=== PATIENT | male | born 1970 | race Caucasian/White ===

== ENCOUNTER 2017-05-16 18:29 | Inpatient (IN) | payer OTHER, MEDICAID ==
[~2017-05-16] VITALS: Ht 162.6 cm; Wt 73.1 kg
--- NOTE | 2017-05-16 18:35 | NUR ---
PT RETURNED TO LOBBY PENDING ROOM AVAILABILITY. VSS. RESPS E/U. NO S/S OF DISTRESS NOTED. PT SPEAKING IN CLEAR FULL SENTENCES. NO NEUROLOGICAL DEFICITS NOTED.
--- NOTE | 2017-05-16 19:19 | NUR ---
RECEIVED PT FROM TRIAGE FOR C/C OF SOB, DIZZINESS, FATIGUE, GENERAL BODY ACHES, AND DOVE. PT STATES THAT HE HAS LEUKEMIA AND IS SCHEDULED FOR A BODY TRANSFUSION TOMMORROW. PT STATES THAT SHE WAS DRIVING ON THE FREEWAY AROUND 1600 AND BEGAN TO FELL DIZZY, FATIGUE AND SOB. PT STATES HE LOSS CONSCIOUSNESS FOR AN UNKNOWN AMOUNT OF TIME. WHEN HE REGAINED CONSCIOUSNESS, HE SPOKE TO HIS MD AND TOLD HIM TO GO TO THE CLOSET ED. PT IS A/O X4, SPEECH IS CLEAR AND FOLLOWS COMMANDS. LS CLEAR BILATERAL AND CHEST RISE AND FALL EQUAL AND UNLABORED. PT IS SATTING 100% ON RA. VS STABLE ON IS ON CARDAIC MONITOR. WILL CONTINUE TO MONITOR.
--- NOTE | 2017-05-16 19:50 | NUR ---
LAB AT BEDSIDE FOR BLOOD DRAW.
[2017-05-16] MEDS ORDERED: ZOLOFT25 MG PO (20:31)
[2017-05-16] MEDS ORDERED: METFORMIN HCL1000 MG PO (20:31)
[2017-05-16 20:38] LABS: PLATELET COUNT 105 x10^3mcL (130-400); RED CELL DISTRIBUTION WIDTH 24.9 % (11.5-14.5)
--- NOTE | 2017-05-16 20:43 | NUR ---
REPORT GIVEN TO MC, ALL QUESTIONS AND CONCERNS ADDRESSED.
--- NOTE | 2017-05-16 20:56 | NUR ---
REC'D PT FROM ER VIA [facility]. PT IS AAOX4. C/O DIZZINESS AND 8/10 HEADACHE. TELE #32 NSR. RESP EVEN AND UNLABORED. PT C/O MILD SOB. O2 SAT=98%. APPLIED O2 2L VIA NC. PT C/O 05/07 GENERALIZED BODY PAIN. IV NOTED TO RFA. INTACT AND PATENT. ORIENTED PT TO CALL LIGHT. BED IN LOWEST POSITION. WILL ENDORSE TO PRIMARY RN.
--- NOTE | 2017-05-16 21:00 | NUR ---
PT. IS A/O X4. LUNG SOUNDS CLEAR BILATERAL. NO COMPLAIN OF CHEST PAIN. ON 2L O2 NASAL CANNULA. BOWEL SOUNDS PRESENT X4. NO TENDERNESS REPORTED. PEDIAL PULSES PRESENT. NO EDEMA NOTED. COMPLAINED OF 7/10 PAIN ON ENTIRE BODY. AWAITING ORDERS TO BE PLACE. WILL MEDICATE ACCORDENDLY. BED IN LOWESTEST SETTING. CALL LIGHT WITHIN REACH. WILL CONITNUE TO MONITOR PT.
[2017-05-16 21:01] LABS: CALCIUM 8.6 mg/dL (8.5-10.1); CARBON DIOXIDE 26.1 mmol/L (21-32); CHLORIDE SERUM 107 mmol/L (98-107); CREATININE SERUM 0.9 mg/dL (0.7-1.3); GFR1 > 60 mL/min; GLUCOSE SERUM 166 mg/dL (74-106); POTASSIUM SERUM 3.7 mmol/L (3.5-5.1); SODIUM SERUM 142 mmol/L (136-145)
[2017-05-16 21:05] LABS: ALBUMIN 3.9 g/dL (3.4-5.0); ALKALINE PHOSPHATASE 65 U/L (46-116); ALT/SGPT 30 U/L (16-63); AST/SGOT 20 U/L (15-37); BILIRUBIN TOTAL 1.59 mg/dL (0.20-1.00); TOTAL PROTEIN, SERUM 7.4 g/dL (6.4-8.2)
[2017-05-16 21:11] VITALS: BP 125/69
[2017-05-16 21:13] VITALS: BP 125/69
[2017-05-16 22:09] LABS: BAND NEUTROPHIL 1 % (0-10); BASOPHIL 1 % (0-2); MONOCYTE 6 % (0-7); SEGMENTED NEUTROPHILS 13 % (37-75); rbc morphology (normal/abnorm) ABNORMAL (NORMAL)
[2017-05-16 22:10] LABS: PLATELET MORPHOLOGY PLATELETS DECREASED
[2017-05-16 22:14] LABS: MAGNESIUM 2.3 mg/dL (1.8-2.4); PHOSPHOROUS 4.1 mg/dL (2.5-4.9)
[2017-05-16 22:24] LABS: FREE T4 1.06 ng/dL (0.76-1.46); FREE THYROXINE INDEX 4.3 ug/dL (1.4-4.5); T3 TOTAL 1.06 ng/mL; T4(THYROXINE) 11.5 ug/dL (4.7-13.3)
--- NOTE | 2017-05-16 22:35 | NUR ---
CONSENT WAS OBTAIN FOR BLOOD TRANSFUSION. PRE VITAL SIGNS WERE B/P 140/81, PULSE 84, TEMP 98.5, RESP. 18, SPO2 100%. WILL CONTINUE TO MONITOR PT.
--- NOTE | 2017-05-16 23:16 | NUR ---
PACKED RBC TRANSFUSION STARTED AT 2301. 15 MIN VS: B/P 112/69, PULSE 84, RESP 19, TEMP 98.4, SPO2 100%. NO ADVERSE REACTIONS NOTED. PT. TOLERATING TRANSFUSION WELL. WILL CONTINUE TO MONTIOR.
--- NOTE | 2017-05-17 00:35 | NUR ---
PT. IS SLEEPING IN BED. NO SIGNS OF ANY DISTRESS NOTED. BLOOD TRANFUSION RUNNING PER MD ORDER. NO ADVERSE REACTION NOTED. PT TOLERATING WELL. BED IN LOWEST SETTING. CALL LIGHT WITHIN REACH. WILL CONTINUE TO MONTIOR.
--- NOTE | 2017-05-17 01:40 | NUR ---
PACKED RBC TANSFUSION FINISHED, 300ML WERE GIVEN. B/P 118/72, PULSE 78, TEMP 98.2, RESP. 20, SPO2 100%. NO ADVERSE REACTIONS WHERE NOTED. PT TOLERATED TRANSFUSION WELL. LAB WAS CALLED FOR CBC IN 15 MIN. WILL CONTINUE TO MONTIOR PT.
[2017-05-17 03:39] LABS: PLATELET COUNT 95 x10^3mcL (130-400); RED CELL DISTRIBUTION WIDTH 27.4 % (11.5-14.5)
--- NOTE | 2017-05-17 03:42 | NUR ---
LAB CALLED FOR CRITICAL VALUE OF WBC OF 1.23, MD SERRATO WAS MADE AWARE. NO NEW ORDERS GIVEN. WILL CONITNUE TO MONITOR.
[2017-05-17 04:07] LABS: BAND NEUTROPHIL 3 % (0-10); METAMYELOCTE 2 % (0-2); MONOCYTE 16 % (0-7); SEGMENTED NEUTROPHILS 23 % (37-75)
[2017-05-17 04:13] LABS: rbc morphology (normal/abnorm) ABNORMAL (NORMAL); tear drop cell (dacryocyte) 1+
[2017-05-17 04:14] LABS: PLATELET MORPHOLOGY PLATELETS DECREASED
--- NOTE | 2017-05-17 05:17 | NUR ---
PT. IS SLEEPING IN BED. NO SIGNS OF PAIN NOTED. NO SIGNS OF RESP. DISTRESS. BED IN LOWEST SETTING. CALL LIGHT WITHIN REACH. WILL CONTINUE TO MONITOR.
[2017-05-17 06:30] LABS: CALCIUM 8.6 mg/dL (8.5-10.1); CARBON DIOXIDE 28.3 mmol/L (21-32); CHLORIDE SERUM 105 mmol/L (98-107); CHOLESTEROL 110 mg/dL (<200); CHOLESTEROL/HDL RATIO 4.6; CREATININE SERUM 0.8 mg/dL (0.7-1.3); GFR1 > 60 mL/min; GLUCOSE SERUM 153 mg/dL (74-106); HDL CHOLESTEROL 24 mg/dL (40-60); MAGNESIUM 2.1 mg/dL (1.8-2.4); PHOSPHOROUS 4.5 mg/dL (2.5-4.9); POTASSIUM SERUM 3.9 mmol/L (3.5-5.1); SODIUM SERUM 140 mmol/L (136-145); TRIGLYCERIDES 275 mg/dL (<150)
[2017-05-17 06:33] VITALS: BP 105/55
--- NOTE | 2017-05-17 07:30 | NUR ---
PATIENT IS IN BED, IN NEUTROPENIC ISOLATION. AWAKE ALERT ABLE TO VERBALIZE NEEDS WELL. TELE 32 NSR. RESP EVEN AND UNLABORED, LUNGS CLEAR ON ROOM AIR. DENIES ANY COUGH OR SOB. VOIDING WELL, URINE SPECIMEN COLLECTED AND SENT TO THE LAB ORDERED. LBM YESTERDAY PER PATIENT. IVF INFUSING WERLL TO RT F/A. GENERALIZED WEAKNESS NOTED. WILL CONTINUE TO MONITOR.
[2017-05-17 08:05] LABS: PLATELET COUNT 90 x10^3mcL (130-400); RED CELL DISTRIBUTION WIDTH 27.4 % (11.5-14.5)
[2017-05-17 08:10] LABS: microscopic required? NO
--- NOTE | 2017-05-17 08:30 | NUR ---
DR ESPINO AND MEDICAL TEAM INTO SEE PATIENT AND DISCUSS PLAN OF CARE TO INCLUDE POSSIBLE TRANSFER TO [facility].
[2017-05-17 08:42] LABS: urine erythrocyte NEGATIVE (NEGATIVE)
[2017-05-17 09:02] LABS: AMPHETAMINE QUAL UR NONE DETECTED (NEG <=1000)
[2017-05-17 09:12] VITALS: BP 137/83
[2017-05-17 11:53] LABS: ATYPICAL LYMPH 30 %; BAND NEUTROPHIL 0 % (0-10); BASOPHIL 0 % (0-2); MONOCYTE 45 % (0-7); SEGMENTED NEUTROPHILS 10 % (37-75); rbc morphology (normal/abnorm) ABNORMAL (NORMAL)
[2017-05-17 11:54] LABS: PLATELET MORPHOLOGY PLATELETS DECREASED
[2017-05-17 12:49] VITALS: BP 124/74
--- NOTE | 2017-05-17 15:24 | NUR ---
PATIENT IS IN BED. NEW ORDER RECEIVED TO TRANSFUSE 1 UNIT OF PRBC. PATIENT SIGNED CONSENT FOR BLOOD TRANSFUSION YESTERDAY AND IS IN AGREEMENT TO RECEIVING ANOTHER UNIT TODAY. PATIENT REQUESTING AT THIS TIME FOR MORPHIN IV Q 3 HRS PER PATIENT IT WORKS FOR HIS GENERALIZED PAIN. PER PATIENT HIS PAIN DECREASES TO ABOUT A 1/10 ON THE PAIN SCALE, THEN AFTER ABOUT 3 HRS IT STARTS INCREASING. WILL BE MEDICATED ORDERED. PATIENT REMAINS IN ISOLATION. NO ACUTE DISTRESS NOTED. WILL CONTINUE TO MONITOR.
[2017-05-17 15:45] LABS: ALBUMIN 3.7 g/dL (3.4-5.0); BILIRUBIN DIRECT 0.33 mg/dL (0.0-0.2); BILIRUBIN TOTAL 1.8 mg/dL (0.20-1.00); TOTAL PROTEIN, SERUM 6.9 g/dL (6.4-8.2)
[2017-05-17 17:06] VITALS: BP 115/78
--- NOTE | 2017-05-17 17:37 | NUR ---
PATIENT IS SITTING UP IN BED, AWAKE ALERT HAS BEEN TALKING ON HIS PHONE AND WATCHING TV. REMAINS IN ISOLATION. AWAITING TO RECEIVE UNIT OF PRBC FROM BLOOD BANK. NO ACUTE DISTRESS NOTED. WILL CONTINUE TO MONITOR.
[2017-05-17 18:25] VITALS: BP 131/80
--- NOTE | 2017-05-17 18:25 | NUR ---
UNIT OF PRBC'S STARTED AFTER UNIT AND PATIENT WAS CHECKED BY MYSELF AND SCOTT CABRERA. VITALS STABLE PRIOR TO THE START OF THE UNIT. PATIENT SITTING UP IN BED WATCHING TV AND EATING DINNER TRAY. PATIENT INSTRUCTED TO NOTIFY NURSE IF HE FEELS AND ADVERSE REACTION.
--- NOTE | 2017-05-17 18:40 | NUR ---
PATIENT IS SITTING UP IN BED WITH AT BEDSIDE. BLOOD TRANSFUSION INFUSING WELL. NO ADVERSE REACTIONS NOTED. VITALS RECHECKED APPEAR STABLE. DENIES ANY ADVERSE REACTIONS AT THIS TIME. WILL ENDORSE TO NOC NURSE.
--- NOTE | 2017-05-17 18:40 | NUR ---
I HAVE REVIEWED THE DATA COLLECTION BY RUDY (NAME): BERNADETTE LOWE ENTERED ON (DATE/TIME): 05/17/17 I CONCUR WITH THE DATA AND ANY EXCEPTIONS OR COMMENTS ARE LISTED BELOW:
--- NOTE | 2017-05-17 19:36 | NUR ---
AOX4. TELE #32, NSR. LUNGS CLEAR AND UNLABORED ON NC @ 2L. RADIAL AND PEDAL PULSES PALPABLE, NO EDEMA. BOWEL SOUNDS ACTIVE. SKIN INTACT. DENIES PAIN AT THIS TIME. BLOOD TRANSFUSION IN PROGRESS. VSS. NO SIGNS OF ADVERSE REACTIONS. BED IN LOW POSITION, CALL LIGHT IN REACH. INSTRUCTED TO CALL FOR ASSISTANCE.
[2017-05-17 21:02] VITALS: BP 126/72
--- NOTE | 2017-05-17 22:25 | NUR ---
BLOOD TRANSFUSION COMPLETE. VSS. NO S/S OF ADVERSE REACTIONS.
[2017-05-17 23:31] LABS: BASOPHIL % 0.4 % (0-2)
[2017-05-17 23:38] LABS: PLATELET COUNT 97 x10^3mcL (130-400); RED CELL DISTRIBUTION WIDTH 25.1 % (11.5-14.5)
--- NOTE | 2017-05-18 01:10 | NUR ---
BREATHING EVEN AND UNLABORED. NO ACUTE DISTRESS NOTED. WILL CONTINUE TO MONITOR.
[2017-05-18 05:37] VITALS: BP 137/65
[2017-05-18 06:41] LABS: CALCIUM 8.4 mg/dL (8.5-10.1); CARBON DIOXIDE 27.7 mmol/L (21-32); CHLORIDE SERUM 103 mmol/L (98-107); CREATININE SERUM 1.1 mg/dL (0.7-1.3); GFR1 > 60 mL/min; GLUCOSE SERUM 145 mg/dL (74-106); POTASSIUM SERUM 3.8 mmol/L (3.5-5.1); SODIUM SERUM 139 mmol/L (136-145)
--- NOTE | 2017-05-18 07:00 | NUR ---
PT WAS ENDORSE TO ME THIS MORNING. A/O X4 , TELE 32 SR. HR 75. BREATHING EVEN AND UNLABORED, NO RESP DISTRESS OR SOB NOTED. DENIES ANY CHEST PAIN AT THIS TIME. LUNGS CLEAR.ON 2LNC. PT STATED HAS GEN PAIN, MEDICATED PER EMAR. IV TO LFA PATENT AND INFUSING.
[2017-05-18 07:35] LABS: PLATELET COUNT 96 x10^3mcL (130-400); RED CELL DISTRIBUTION WIDTH 24.8 % (11.5-14.5)
[2017-05-18 07:50] LABS: BAND NEUTROPHIL 4 % (0-10); BASOPHIL 0 % (0-2); METAMYELOCTE 4 % (0-2); MONOCYTE 28 % (0-7); SEGMENTED NEUTROPHILS 20 % (37-75); rbc morphology (normal/abnorm) ABNORMAL (NORMAL)
[2017-05-18 07:51] LABS: PLATELET MORPHOLOGY D; schistocyte (helmet cell) 1+
[2017-05-18 09:16] VITALS: BP 141/76
[2017-05-18] MEDS ORDERED: LEVOFLOXACIN750 M1 PO (11:59)
[2017-05-18 12:29] VITALS: BP 134/82
[2017-05-18 13:06] VITALS: BP 141/76
--- NOTE | 2017-05-18 13:40 | NUR ---
PT WAS C/O FEELING WEAK AND SHAKY. [facility] CK WAS DONE, 131. DR. LINDQUIST MADE AWARE.
--- NOTE | 2017-05-18 15:19 | NUR ---
PT STATED HE NO LONGER FEELS SHAKY AND WEAK. CHANGED SHEETS DUE TO PT SWEATING. PT IS C/O GEN BODY PAIN, WILL MEDICATED PER EMAR. CALL LIGHT IN REACH. WILL CONTINUE PLAN OF CARE.
[2017-05-18 16:54] VITALS: BP 124/72
--- NOTE | 2017-05-18 19:00 | NUR ---
PT IS LAYING IN BED WATCHING TV. BREATHING EVEN AND UNLABORED. NO RESP DISTRESS OR SOB NOTED, ON 2LNC. DENIES ANY CHEST PAIN OR DISCOMFORT AT THIS TIME. VS STABLE. WILL ENDORSE CARE TO INCOMING RN.
--- NOTE | 2017-05-18 19:23 | NUR ---
AOX4. TELE #32, NSR. LUNGS CLEAR AND UNLABORED ON NC @ 2L. RADIAL AND PEDAL PULSES PALPABLE, NO EDEMA. BOWEL SOUNDS ACTIVE. SKIN INTACT. DENIES PAIN AT THIS TIME. NEUTROPENIC PRECAUTIONS MAINTAINED. BED IN LOW POSITION, CALL LIGHT IN REACH. INSTRUCTED TO CALL FOR ASSISTANCE.
[2017-05-18 20:38] VITALS: BP 123/64
--- NOTE | 2017-05-19 00:51 | NUR ---
RESTING WITH EYES CLOSED. AWAKENS EASILY TO VERBAL STIMULI. BREATHING EVEN AND UNLABORED. NO ACUTE DISTRESS NOTED. WILL CONTINUE TO MONITOR.
[2017-05-19 05:11] VITALS: BP 118/56
--- NOTE | 2017-05-19 06:08 | NUR ---
NO ACUTE CHANGES DURING SHIFT. WILL ENDORSE TO ONCOMING RN.
[2017-05-19 06:49] LABS: CALCIUM 8.5 mg/dL (8.5-10.1); CARBON DIOXIDE 26.8 mmol/L (21-32); CHLORIDE SERUM 105 mmol/L (98-107); CREATININE SERUM 0.9 mg/dL (0.7-1.3); GFR1 > 60 mL/min; GLUCOSE SERUM 145 mg/dL (74-106); POTASSIUM SERUM 4.6 mmol/L (3.5-5.1); SODIUM SERUM 138 mmol/L (136-145)
[2017-05-19 07:18] LABS: PLATELET COUNT 90 x10^3mcL (130-400); RED CELL DISTRIBUTION WIDTH 24.2 % (11.5-14.5)
--- NOTE | 2017-05-19 07:24 | NUR ---
PT WS ENDORSE TO ME THIS MORNING. SITTING UP IN BED, AA/O X4. TELE 22 SR. BREATHING EVEN AND UNLABORED, NO RESP DISTRESS OR SOB NOTED. DENIES ANY BODY PAIN OR DISCOMFORT AT THIS TIME. IV INTACT AND PATENT. CALL LIGHT IN REACH. WILL CONTINUE PLAN OF CARE.
[2017-05-19 07:54] LABS: ATYPICAL LYMPH 8 %; SEGMENTED NEUTROPHILS 28 % (37-75)
[2017-05-19 07:55] LABS: MONOCYTE 18 % (0-7)
[2017-05-19 07:56] LABS: rbc morphology (normal/abnorm) ABNORMAL (NORMAL)
[2017-05-19 08:08] LABS: PLATELET MORPHOLOGY PLATELETS DECREASED
[2017-05-19 09:09] VITALS: BP 128/67
--- NOTE | 2017-05-19 09:16 | NUR ---
PT C/O FEELING NAUSEOUS MEDICATED WITH ZOFRAN.
--- NOTE | 2017-05-19 11:54 | NUR ---
PT C/O BODY PAIN 05/07. MEDICATED PER EMAR.
[2017-05-19] MEDS ORDERED: ENDOCET 5-3251 EACH PO ×3 (13:08→13:40)
--- NOTE | 2017-05-19 13:19 | NUR ---
PT IS SITTING UP IN BED. TOLERATED MOST OF HIS LUNCH. STATED HIS N/V IS MUCH BETTER. BREATHING EVEN AND UNLABORED, NO RESP DISTRESS OR SOB NOTE, ON 2L NC. DENIES ANY DISCOMFORT AT THIS TIME. CALL LIGHT IN REACH. WILL CONTINUE PLAN OF CARE.
[2017-05-19] MEDS ORDERED: LEVOFLOXACIN750 M1 PO (13:35)
[2017-05-19 13:54] VITALS: BP 121/74
[2017-05-19 14:20] VITALS: BP 121/74
--- NOTE | 2017-05-19 15:24 | NUR ---
EXPLAINED DISCHARGE INSTRUCTIONS, FOLLOW UP APPOINTMENT, DM TEACHING AND MEDICATIONS TO PT. PT AGREED AND SIGNED ALL DOCUMENTS. REMOVED TELE 32 AND IV TO THE LAC. PT TOLERATED REMOVAL WELL. NO REDNESS OR SWELLING NOTED. PT WILL CALL NURSES STATION WHEN IS IS DRESSED AND HIS RIDE HAS ARRIVED.
--- NOTE | 2017-05-19 15:45 | NUR ---
I HAVE REVIEWED THE DATA COLLECTION BY RUDY (NAME):BERNADETTE LOWE ENTERED ON (DATE/TIME):05/19/17 AT 0700AM I CONCUR WITH THE DATA AND ANY EXCEPTIONS OR COMMENTS ARE LISTED BELOW:
--- NOTE | 2017-05-19 16:00 | NUR ---
PT IS BEING DISCHARGE. RADHA BARKER WALKED PT DOWN TO DISCHARGE LOBBY, WHERE FAMILY MEMBER IS WAITING IN LOBBY. PT BREATHING EVEN AND UNLABORED. NO RESP DISTRESS OR SOB NOTED. VS STABLE. DENIES ANY BODY PAIN OR DISCOMFORT AT THIS TIME. PT IS VERY HAPPY HE IS GOING HOME.
== END 2017-05-19 16:00 | disposition home or self-care (01) | DRG 811 ==
LOC: ED 18:29 → DU 20:21
PROVIDERS: Emergency Medicine; Family Medicine; ADMIT Family Medicine
PROC: 30233N1 Transfusion of Nonautologous Red Blood Cells into Peripheral Vein, Percutaneous Approach (ICD-10-PCS; principal; 2017-05-16)
DX: D46.Z Other myelodysplastic syndromes (principal); D61.1 Drug-induced aplastic anemia; J98.11 Atelectasis; D68.69 Other thrombophilia; E11.9 Type 2 diabetes mellitus without complications; F32.9 Major depressive disorder, single episode, unspecified; Z68.27 Body mass index [BMI] 27.0-27.9, adult; Z79.84 Long term (current) use of oral hypoglycemic drugs; T45.1X5A Adverse effect of antineoplastic and immunosuppressive drugs, initial encounter; Y92.238 Other place in hospital as the place of occurrence of the external cause
CPT/HCPCS: 82962; 83880; 84439; 90658; 94150; J1956; J2270; J2405; J7030; J7040; J7050; P9016; Q0092; Q0163

== ENCOUNTER 2017-07-04 17:24 | Inpatient (IN) | payer OTHER, MEDICAID ==
[~2017-07-04] VITALS: Ht 162.6 cm; Wt 74.0 kg
[~2017-07-04 17:24] MED LIST: ENDOCET 5-3251 EACH PO; LEVOFLOXACIN750 M1 PO; METFORMIN HCL1000 MG PO; ZOLOFT25 MG PO
--- NOTE | 2017-07-04 17:40 | NUR ---
AWAKE ALERT ORIENTED, STATED STARTED TO FEEL DIZZY SINCE 2 DAYS,WEAKNESS FOR A LONG TIME SINCE STARTED CHEMOTHERAPY 2 YEARS AGO,
--- NOTE | 2017-07-04 17:56 | NUR ---
IV ESTABLISHED, EKG DONE
[2017-07-04 18:32] LABS: CALCIUM 8.5 mg/dL (8.5-10.1); CARBON DIOXIDE 27.9 mmol/L (21-32); CHLORIDE SERUM 105 mmol/L (98-107); GFR1 > 60 mL/min; GLUCOSE SERUM 216 mg/dL (74-106); POTASSIUM SERUM 3.6 mmol/L (3.5-5.1); SODIUM SERUM 140 mmol/L (136-145)
[2017-07-04 18:33] LABS: PLATELET COUNT 135 x10^3mcL (130-400)
[2017-07-04 18:34] LABS: RED CELL DISTRIBUTION WIDTH 24.8 % (11.5-14.5)
[2017-07-04 18:38] LABS: ALKALINE PHOSPHATASE 89 U/L (46-116); ALT/SGPT 32 U/L (16-63); BILIRUBIN TOTAL 1.42 mg/dL (0.20-1.00); TOTAL PROTEIN, SERUM 7.5 g/dL (6.4-8.2)
[2017-07-04 19:04] LABS: AST/SGOT 13 U/L (15-37)
[2017-07-04 19:17] LABS: BAND NEUTROPHIL 0 % (0-10); BASOPHIL 0 % (0-2); MONOCYTE 13 % (0-7); SEGMENTED NEUTROPHILS 54 % (37-75); rbc morphology (normal/abnorm) ABNORMAL (NORMAL)
--- NOTE | 2017-07-04 19:22 | NUR ---
PT LYING DOWN RESTING, PT AAOX4, SPEAKING IN CLEAR SENTENCES. PT IN NO ACUTE DISTRESS.
--- NOTE | 2017-07-04 19:50 | NUR ---
RESIDENT AT BEDSIDE
--- NOTE | 2017-07-04 20:19 | NUR ---
REPORT GIVEN TO CARIN WHO IS ORIENTING WITH SONJA CABRERA. SONJA AND CARIN WILL ASSUME CARE POST TRANSFER
[2017-07-04 20:27] LABS: AMYLASE 56 U/L (25-115); LIPASE 264 IU/L (73-393); MAGNESIUM 2.4 mg/dL (1.8-2.4); PHOSPHOROUS 3.7 mg/dL (2.5-4.9)
[2017-07-04 20:28] LABS: CHOLESTEROL 110 mg/dL (<200); CHOLESTEROL/HDL RATIO 5.8; HDL CHOLESTEROL 19 mg/dL (40-60); TRIGLYCERIDES 544 mg/dL (<150)
[2017-07-04 20:35] VITALS: BP 139/80
[2017-07-04 20:35] LABS: FREE T4 1.08 ng/dL (0.76-1.46); FREE THYROXINE INDEX 3.7 ug/dL (1.4-4.5); T4(THYROXINE) 10.9 ug/dL (4.7-13.3)
--- NOTE | 2017-07-04 20:35 | NUR ---
PT RECIEVED FROM ED ON [facility] ACCOMPANIED BY NURSE. PT IS ON TELE #22 SHOWING SINUS TACHYCARDIA HR IS 110. ALERT AND ORIENTED X4. DENIES CHEST PAIN AT THIS TIME. C/O DOVE PAIN AT 8/10 WILL MEDICATE PER EMAR. PULSES PALPABLE IN ALL EXTREMITIES. NO EDEMA NOTED. LUNG SOUNDS CTA. NO SOB OBSERVED. BOWEL SOUNDS ACTIVE X4 QUADRANTS. GENERALIZED WEAKNESS. IV SITE IS PATENT AND INTACT. BED IS IN LOWEST POSITION, SIDE RAILS UP X2, CALL LIGHT IS WITHIN REACH. WILL CONTINUE TO MONITOR.
[2017-07-04 20:36] LABS: T3 TOTAL 1.02 ng/mL
[2017-07-04 20:43] LABS: RED BLOOD CELLS 2.24 M/mm3 (4.52-5.90)
--- NOTE | 2017-07-04 20:56 | NUR ---
PER DR KARINA OLMEDO TO GIVE NORCO 7.5/325 PO X 2 TABS AT THIS TIME FOR PT'S HEADACHE.
[2017-07-04 21:08] LABS: IRON 63 ug/dL (65-170)
[2017-07-04 21:09] LABS: TOTAL IRON BINDING CAPACITY 201 ug/dL (250-450)
[2017-07-04 22:16] VITALS: BP 139/80
--- NOTE | 2017-07-04 23:27 | NUR ---
PT C/O PAIN AT 04/07, MEDICATED WITH TORADOL 30 MG PER EMAR. WILL CONTINUE TO MONITOR.
[2017-07-05] VITALS (10 sets, daily range): BP systolic 111–139; BP diastolic 65–82
--- NOTE | 2017-07-05 03:40 | NUR ---
PATIENT C/O PAIN 03/07, WILL MEDICATE PER EMAR.
--- NOTE | 2017-07-05 06:11 | NUR ---
PT IS RESTING IN BED. C/O PAIN AT 8/10 WILL MEDICATE PER EMAR. TELE #40 IS SHOWING SINUS TACHYCARDIA, HR IS 116. NO ACUTE CHANGES. DENIES SOB AT THIS TIME. DENIES CHEST PAIN AT THIS TIME. ALL NEEDS MET AND ATTENDED TO. IV SITE IS PATENT AND INTACT. BED RAILS UP X2, BED IS IN LOWEST POSITION, CALL LIGHT IS WITHIN REACH. WILL ENDORSE CARE TO ONCOMING SHIFT NURSE.
--- NOTE | 2017-07-05 08:00 | NUR ---
ALERT/ORIENTED X4. STATED HEADACHE AND WHOLE BODY PAIN 2/10 NOW. TELE#23 = SR; HR =96. NO RESP DISTRESS ON RA. O2 SAT 99% ON RA. FINISHED 100% OF CCHO DIET BREAKFAST. TOLERATED WELL. ABD ROUND/SOFT. IVF OF NS 30CC/HR INFUSING WELL. IV SITE TO RFA INTACT. GENERAL WEAKNESS. AMBULATORY. REVERSED ISOLATION FOR LEUKEMIA. CALL LIGHT IN REACH.
--- NOTE | 2017-07-05 09:00 | NUR ---
DR. ESPINO AND MEDICAL TEAM MADE MORNING ROUND. PLAN OF CARE DISCUSSED WITH PATIENT, INCLUDED WITH BLOOD TRANSFUSION TODAY AND D/C HOME AFTER BLOOD TRANSFUSION DONE. DAMIEN AGREED WITH PLAN OF CARE.
[2017-07-05 09:01] LABS: PLATELET COUNT 92 x10^3mcL (130-400); RED CELL DISTRIBUTION WIDTH 24.8 % (11.5-14.5)
[2017-07-05 09:33] LABS: CALCIUM 8.7 mg/dL (8.5-10.1); CARBON DIOXIDE 26.4 mmol/L (21-32); CHLORIDE SERUM 107 mmol/L (98-107); GFR1 > 60 mL/min; GLUCOSE SERUM 208 mg/dL (74-106); MAGNESIUM 2.3 mg/dL (1.8-2.4); PHOSPHOROUS 4.5 mg/dL (2.5-4.9); POTASSIUM SERUM 4.1 mmol/L (3.5-5.1); SODIUM SERUM 141 mmol/L (136-145)
[2017-07-05 09:47] LABS: ALBUMIN 3.5 g/dL (3.4-5.0); ALKALINE PHOSPHATASE 79 U/L (46-116); ALT/SGPT 25 U/L (16-63); AST/SGOT 19 U/L (15-37); BILIRUBIN TOTAL 1.23 mg/dL (0.20-1.00); CALCIUM 8.3 mg/dL (8.5-10.1); CARBON DIOXIDE 27.5 mmol/L (21-32); CHLORIDE SERUM 106 mmol/L (98-107); CREATININE SERUM 1.1 mg/dL (0.7-1.3); GFR1 > 60 mL/min; GLUCOSE SERUM 231 mg/dL (74-106); POTASSIUM SERUM 4.1 mmol/L (3.5-5.1); SODIUM SERUM 138 mmol/L (136-145); TOTAL PROTEIN, SERUM 6.7 g/dL (6.4-8.2)
[2017-07-05 10:32] LABS: BAND NEUTROPHIL 16 % (0-10); BASOPHIL 0 % (0-2); METAMYELOCTE 2 % (0-2); MONOCYTE 15 % (0-7); MYELOCYTE 1 % (0-2); SEGMENTED NEUTROPHILS 41 % (37-75)
[2017-07-05 10:33] LABS: PLATELET MORPHOLOGY PLATELETS DECREASED; rbc morphology (normal/abnorm) ABNORMAL (NORMAL); tear drop cell (dacryocyte) 1+
--- NOTE | 2017-07-05 13:50 | NUR ---
1 ST UNIT OF PRBC TRANSFUSION STARTED. BENADRYL 25MG AND TYLENOL 650MG PO GIVEN.
--- NOTE | 2017-07-05 16:30 | NUR ---
ONE UNIT OF PRBC TRANSFUSION DONE. NO ADVERSED REACTION. CONDITION STABLE.
[2017-07-05 18:17] LABS: PLATELET COUNT 90 x10^3mcL (130-400); RED CELL DISTRIBUTION WIDTH 24.9 % (11.5-14.5)
[2017-07-05 18:46] LABS: BAND NEUTROPHIL 5 % (0-10); METAMYELOCTE 2 % (0-2); MONOCYTE 13 % (0-7); MYELOCYTE 1 % (0-2); SEGMENTED NEUTROPHILS 51 % (37-75)
[2017-07-05 18:48] LABS: rbc morphology (normal/abnorm) ABNORMAL (NORMAL); tear drop cell (dacryocyte) 2+
--- NOTE | 2017-07-05 18:50 | NUR ---
RECHECKED H/H = 7.8/24; WBC =2.2; DR. PARDO NOTIFIED. CNACLED DISCHARGE ORDER. ENDORSED CARE TO [facility] NURSE.
--- NOTE | 2017-07-05 19:35 | NUR ---
PT SITTING UP IN BED, C/O CP ASSOCIATED W/ COUGHING AT THIS TIME. WILL MEDICATE W/ TORADOL. PT ALERT AND ORIENTED X4 ON RA. PT ON NEUTROPENIC PRECAUTIONS D/T LOW WBC. TELE #22, ST 115. PT DENIES CP (CARDIAC) AT THIS TIME. ABD SOFT, ROUND, NONDISTENDED, BOWEL SOUNDS + X4 QUADRANTS, NO ABD PAIN NOTED AT THIS TIME. GENERALIZED WEAKNESS, SKIN INTACT, IV SITE REMAINS PATENT, SALINE LOCKED AT THIS TIME D/T PT PREVIOUSLY PLAN FOR D/C UNTIL LOW HGB. CALL LIGHT WITHIN REACH, BED IN LOWEST POSITION, WILL CONTINUE TO MONITOR.
[2017-07-06 01:00] VITALS: BP 123/72
[2017-07-06 03:00] VITALS: BP 131/78
--- NOTE | 2017-07-06 05:20 | NUR ---
PT RESTED IN INTERVALS THROUGHOUT NIGHT, NO ACUTE CHANGES OCCURRED DURING SHIFT. PT RECEIVED 2 UNITS PACKED RBC'S; PT DENIES ANY ADVERSE REACTION, VS REMAINED STABLE. PT REMAINED A & OX4, TELE #22 SR 89, NO C/O CP (CARDIAC) AT THIS TIME. MEDICATED PT X1 W/ TORADOL IVP @ 2013 FOR CHEST MUSCLE PAIN W/ COUGH. MEDICATED PT W/ ROBITUSSIN W/ CODEINE FOR COUGH @ 0016. IV SITE REMAINS PATENT, NS @ 10ML/HR. NO REDNESS, SWELLING OR PAIN NOTED. PT REPORTS FEELING BETTER AFTER TRANSFUSION, CALL LIGHT WITHIN REACH, BED IN LOWEST POSITION, WILL CONTINUE TO MONITOR.
[2017-07-06 06:24] VITALS: BP 136/65; BP 153/77
--- NOTE | 2017-07-06 07:15 | NUR ---
PT IS ON NEUTOPENIC PRECAUTION. PT SEEN AA/O X4. PT STATED TORADOL HELP THE CHEST PAIN INDUCED BY COUGHING. PT BREATHING ON RA, EVEN, UNLABORED. IV SITE PATENT, INTACT. IVF INFUSING WELL.
[2017-07-06 07:45] VITALS: BP 127/82
[2017-07-06 11:32] LABS: BASOPHIL % 0.5 % (0-2)
[2017-07-06 11:35] LABS: PLATELET COUNT 79 x10^3mcL (130-400); RED CELL DISTRIBUTION WIDTH 23.4 % (11.5-14.5)
[2017-07-06] MEDS ORDERED: ROBDML PO (11:59)
[2017-07-06 12:17] LABS: rbc morphology (normal/abnorm) ABNORMAL (NORMAL); tear drop cell (dacryocyte) 1+
[2017-07-06 12:21] VITALS: BP 127/82
[2017-07-06 12:53] VITALS: Ht 162.6 cm; Wt 74.0 kg
[2017-07-06 13:22] LABS: TRANSFERRIN 210 mg/dL (200-370)
--- NOTE | 2017-07-06 13:25 | NUR ---
PT IS READY TO BE DISCHARGED. DISCHARGE INSTRUCTION GIVEN. PT DENIED DIZZINESS. PT'S SISTER WILL PICK HIM UP. IV IS REMOVED. NO DISTRESSED NOTED.
== END 2017-07-06 13:46 | disposition home or self-care (01) | DRG 812 ==
LOC: ED 17:24 → DU 19:29
PROVIDERS: Emergency Medicine; ADMIT Family Medicine
DX: D46.Z Other myelodysplastic syndromes (principal); D61.818 Other pancytopenia; D68.69 Other thrombophilia; R55 Syncope and collapse; E11.9 Type 2 diabetes mellitus without complications; K72.90 Hepatic failure, unspecified without coma; G89.29 Other chronic pain; I10 Essential (primary) hypertension; E78.1 Pure hyperglyceridemia; D53.9 Nutritional anemia, unspecified; F32.9 Major depressive disorder, single episode, unspecified; Z68.28 Body mass index [BMI] 28.0-28.9, adult
CPT/HCPCS: 82962; 83880; 84439; J1885; J7030; J7040; J7050; J7620; P9016; Q0092; Q0163

== ENCOUNTER 2017-08-31 16:23 | Inpatient (IN) | payer OTHER, MEDICAID ==
[~2017-08-31] VITALS: Ht 162.6 cm; Wt 71.8 kg
[~2017-08-31 16:23] MED LIST changes: +ROBDML PO
[2017-08-31 16:31] VITALS: Ht 162.6 cm; Wt 71.8 kg
[2017-08-31 17:41] LABS: CALCIUM 8.6 mg/dL (8.5-10.1); CARBON DIOXIDE 24.5 mmol/L (21-32); CHLORIDE SERUM 104 mmol/L (98-107); CREATININE SERUM 0.8 mg/dL (0.7-1.3); GFR1 > 60 mL/min; GLUCOSE SERUM 241 mg/dL (74-106); POTASSIUM SERUM 3.9 mmol/L (3.5-5.1); SODIUM SERUM 138 mmol/L (136-145)
[2017-08-31 17:46] LABS: ALBUMIN 3.9 g/dL (3.4-5.0); ALKALINE PHOSPHATASE 83 U/L (46-116); ALT/SGPT 28 U/L (16-63); AST/SGOT 17 U/L (15-37); BILIRUBIN TOTAL 1.1 mg/dL (0.20-1.00); PHOSPHOROUS 3.6 mg/dL (2.5-4.9); TOTAL PROTEIN, SERUM 7.4 g/dL (6.4-8.2); URIC ACID 4.5 mg/dL (3.5-7.2)
[2017-08-31 17:49] LABS: CHOLESTEROL 130 mg/dL (<200); HDL CHOLESTEROL 22 mg/dL (40-60)
[2017-08-31 18:58] LABS: PLATELET COUNT 126 x10^3mcL (130-400); RED CELL DISTRIBUTION WIDTH 26.2 % (11.5-14.5)
[2017-08-31 19:53] LABS: BASOPHIL 0 % (0-2)
[2017-08-31 19:57] LABS: BAND NEUTROPHIL 4 % (0-10); MONOCYTE 8 % (0-7); SEGMENTED NEUTROPHILS 48 % (37-75)
[2017-08-31 19:59] LABS: PLATELET MORPHOLOGY PLATELETS DECREASED; rbc morphology (normal/abnorm) ABNORMAL (NORMAL)
[2017-08-31 20:03] LABS: MAGNESIUM 2.1 mg/dL (1.8-2.4)
[2017-08-31 20:09] VITALS: BP 133/81
[2017-08-31 20:09] LABS: CHOLESTEROL 134 mg/dL (<200); CHOLESTEROL/HDL RATIO 6.4; HDL CHOLESTEROL 21 mg/dL (40-60); TRIGLYCERIDES 479 mg/dL (<150); target cell (codocyte) 1+
[2017-08-31 20:12] LABS: FREE T4 0.99 ng/dL (0.76-1.46); T4(THYROXINE) 8.9 ug/dL (4.7-13.3)
[2017-08-31 20:27] LABS: T3 TOTAL 0.97 ng/mL
[2017-09-01] VITALS (8 sets, daily range): BP systolic 100–138; BP diastolic 52–82
[2017-09-01 06:54] LABS: microscopic required? NO
[2017-09-01 07:10] LABS: CALCIUM 8.3 mg/dL (8.5-10.1); CARBON DIOXIDE 25.1 mmol/L (21-32); CHLORIDE SERUM 106 mmol/L (98-107); CREATININE SERUM 0.8 mg/dL (0.7-1.3); GFR1 > 60 mL/min; GLUCOSE SERUM 190 mg/dL (74-106); SODIUM SERUM 140 mmol/L (136-145)
[2017-09-01 07:29] LABS: RED CELL DISTRIBUTION WIDTH 25.8 % (11.5-14.5)
[2017-09-01 07:30] LABS: PLATELET COUNT 105 x10^3mcL (130-400)
[2017-09-01 08:16] LABS: UA SPECIFIC GRAVITY >=1.030 (1.005-1.035); urine erythrocyte NEGATIVE (NEGATIVE)
[2017-09-01 08:31] LABS: BAND NEUTROPHIL 5 % (0-10); BASOPHIL 0 % (0-2); MONOCYTE 11 % (0-7); SEGMENTED NEUTROPHILS 43 % (37-75)
[2017-09-01 08:32] LABS: rbc morphology (normal/abnorm) ABNORMAL (NORMAL)
[2017-09-01 08:33] LABS: schistocyte (helmet cell) 1+; target cell (codocyte) 1+
[2017-09-01 16:45] LABS: PLATELET COUNT 69 x10^3mcL (130-400); RED CELL DISTRIBUTION WIDTH 24.5 % (11.5-14.5)
[2017-09-01 17:13] LABS: BAND NEUTROPHIL 0 % (0-10); BASOPHIL 0 % (0-2); MONOCYTE 12 % (0-7); SEGMENTED NEUTROPHILS 45 % (37-75)
[2017-09-01 17:16] LABS: rbc morphology (normal/abnorm) ABNORMAL (NORMAL); target cell (codocyte) 2+; tear drop cell (dacryocyte) 1+
[2017-09-02 06:09] VITALS: BP 124/80
[2017-09-02 08:05] LABS: CALCIUM 8.6 mg/dL (8.5-10.1); CARBON DIOXIDE 26.5 mmol/L (21-32); CHLORIDE SERUM 104 mmol/L (98-107); CREATININE SERUM 0.9 mg/dL (0.7-1.3); GFR1 > 60 mL/min; GLUCOSE SERUM 187 mg/dL (74-106); POTASSIUM SERUM 4.1 mmol/L (3.5-5.1); SODIUM SERUM 138 mmol/L (136-145)
[2017-09-02 08:17] LABS: PLATELET COUNT 115 x10^3mcL (130-400); RED CELL DISTRIBUTION WIDTH 24.7 % (11.5-14.5)
[2017-09-02 09:10] VITALS: BP 124/70
[2017-09-02 10:40] LABS: ATYPICAL LYMPH 0 %; BAND NEUTROPHIL 0 % (0-10); BASOPHIL 0 % (0-2); MONOCYTE 20 % (0-7); SEGMENTED NEUTROPHILS 28 % (37-75)
[2017-09-02 10:41] LABS: PLATELET MORPHOLOGY D; rbc morphology (normal/abnorm) ABNORMAL (NORMAL); tear drop cell (dacryocyte) 1+
[2017-09-02 12:14] VITALS: BP 122/76
[2017-09-02 16:38] VITALS: BP 122/66
[2017-09-02 22:00] VITALS: BP 125/80
[2017-09-03 05:26] VITALS: BP 112/65
[2017-09-03 06:46] LABS: CARBON DIOXIDE 25.5 mmol/L (21-32); CHLORIDE SERUM 103 mmol/L (98-107); CREATININE SERUM 0.9 mg/dL (0.7-1.3); GFR1 > 60 mL/min; GLUCOSE SERUM 173 mg/dL (74-106); POTASSIUM SERUM 3.8 mmol/L (3.5-5.1); SODIUM SERUM 138 mmol/L (136-145)
[2017-09-03 07:01] LABS: PLATELET COUNT 124 x10^3mcL (130-400); RED CELL DISTRIBUTION WIDTH 24.3 % (11.5-14.5)
[2017-09-03 09:13] VITALS: BP 113/59
[2017-09-03 09:39] LABS: ATYPICAL LYMPH 16 %; BAND NEUTROPHIL 0 % (0-10); BASOPHIL 0 % (0-2); MONOCYTE 20 % (0-7); SEGMENTED NEUTROPHILS 17 % (37-75); rbc morphology (normal/abnorm) ABNORMAL (NORMAL)
[2017-09-03 09:40] LABS: PLATELET MORPHOLOGY D; acanthocyte (spur cell) 2+
[2017-09-03 11:51] VITALS: BP 113/59
[2017-09-03 13:05] VITALS: BP 117/63
== END 2017-09-03 13:35 | disposition home or self-care (01) | DRG 811 ==
LOC: ED 16:23 → DU 19:17
PROVIDERS: Emergency Medicine; Family Medicine
PROC: 30233N1 Transfusion of Nonautologous Red Blood Cells into Peripheral Vein, Percutaneous Approach (ICD-10-PCS; principal; 2017-09-01)
DX: D64.81 Anemia due to antineoplastic chemotherapy (principal); N17.0 Acute kidney failure with tubular necrosis; C94.6 Myelodysplastic disease, not elsewhere classified; D61.810 Antineoplastic chemotherapy induced pancytopenia; T45.1X5A Adverse effect of antineoplastic and immunosuppressive drugs, initial encounter; D63.1 Anemia in chronic kidney disease; E11.65 Type 2 diabetes mellitus with hyperglycemia; J32.2 Chronic ethmoidal sinusitis; J98.4 Other disorders of lung; G93.89 Other specified disorders of brain; E78.1 Pure hyperglyceridemia; I10 Essential (primary) hypertension; F32.9 Major depressive disorder, single episode, unspecified; Z68.25 Body mass index [BMI] 25.0-25.9, adult; Z79.891 Long term (current) use of opiate analgesic; Z79.84 Long term (current) use of oral hypoglycemic drugs; Y92.009 Unspecified place in unspecified non-institutional (private) residence as the place of occurrence of the external cause
CPT/HCPCS: 82962; 83880; 84439; 94150; J1815; J1885; J1940; J2270; J2405; J7030; J7050; J8597; Q0092; Q0163

== ENCOUNTER 2017-09-27 01:28 | Inpatient (IN) | payer OTHER, MEDICAID ==
[~2017-09-27] VITALS: Ht 162.6 cm; Wt 71.8 kg
[2017-09-27 01:34] VITALS: Ht 162.6 cm; Wt 71.8 kg
[2017-09-27 02:18] LABS: PLATELET COUNT 161 x10^3mcL (130-400)
[2017-09-27 02:19] LABS: BASOPHIL % 4.5 % (0-2); RED CELL DISTRIBUTION WIDTH 22.4 % (11.5-14.5)
[2017-09-27 02:39] LABS: ALBUMIN 4.1 g/dL (3.4-5.0); ALKALINE PHOSPHATASE 118 U/L (46-116); ALT/SGPT 59 U/L (16-63); AST/SGOT 24 U/L (15-37); BILIRUBIN TOTAL 1.38 mg/dL (0.20-1.00); CALCIUM 9.1 mg/dL (8.5-10.1); CARBON DIOXIDE 20.8 mmol/L (21-32); CHLORIDE SERUM 96 mmol/L (98-107); CREATININE SERUM 1.3 mg/dL (0.7-1.3); GFR1 > 60 mL/min; POTASSIUM SERUM 4.3 mmol/L (3.5-5.1); SODIUM SERUM 131 mmol/L (136-145); TOTAL PROTEIN, SERUM 8.1 g/dL (6.4-8.2)
[2017-09-27 02:44] LABS: GLUCOSE SERUM 566.24 mg/dL (74-106)
[2017-09-27 08:21] VITALS: BP 124/78
[2017-09-27 08:33] LABS: MAGNESIUM 2.3 mg/dL (1.8-2.4); PHOSPHOROUS 4.7 mg/dL (2.5-4.9)
[2017-09-27 08:36] LABS: CHOLESTEROL/HDL RATIO 5.8
[2017-09-27 08:41] LABS: FREE T4 1.28 ng/dL (0.76-1.46); FREE THYROXINE INDEX 3.1 ug/dL (1.4-4.5); T4(THYROXINE) 9.6 ug/dL (4.7-13.3)
[2017-09-27 08:52] LABS: T3 TOTAL 0.66 ng/mL
[2017-09-27 09:48] VITALS: BP 124/78
[2017-09-27 13:45] VITALS: BP 107/71
[2017-09-27 17:34] LABS: CALCIUM 8.8 mg/dL (8.5-10.1); CARBON DIOXIDE 22.6 mmol/L (21-32); CHLORIDE SERUM 101 mmol/L (98-107); CREATININE SERUM 1.2 mg/dL (0.7-1.3); GFR1 > 60 mL/min; GLUCOSE SERUM 405 mg/dL (74-106); POTASSIUM SERUM 4.6 mmol/L (3.5-5.1); SODIUM SERUM 135 mmol/L (136-145)
[2017-09-27 17:44] VITALS: BP 118/77
[2017-09-27 17:49] LABS: microscopic required? NO
[2017-09-27 18:54] LABS: UA SPECIFIC GRAVITY 1.015 (1.005-1.035); urine erythrocyte NEGATIVE (NEGATIVE)
[2017-09-27 20:56] VITALS: BP 115/69
[2017-09-27 21:23] VITALS: BP 115/69
[2017-09-28] VITALS (7 sets, daily range): BP systolic 108–138; BP diastolic 66–78
[2017-09-28 07:25] LABS: CALCIUM 8.2 mg/dL (8.5-10.1); CARBON DIOXIDE 23.2 mmol/L (21-32); CHLORIDE SERUM 106 mmol/L (98-107); CREATININE SERUM 0.8 mg/dL (0.7-1.3); GFR1 > 60 mL/min; GLUCOSE SERUM 165 mg/dL (74-106); MAGNESIUM 1.9 mg/dL (1.8-2.4); PHOSPHOROUS 4.4 mg/dL (2.5-4.9); POTASSIUM SERUM 4.1 mmol/L (3.5-5.1); SODIUM SERUM 139 mmol/L (136-145)
[2017-09-28 07:35] LABS: PLATELET COUNT 123 x10^3mcL (130-400); RED CELL DISTRIBUTION WIDTH 24.2 % (11.5-14.5)
[2017-09-28 10:03] LABS: BAND NEUTROPHIL 3 % (0-10); BASOPHIL 0 % (0-2); MONOCYTE 12 % (0-7); SEGMENTED NEUTROPHILS 40 % (37-75)
[2017-09-28 10:04] LABS: PLATELET MORPHOLOGY PLATELETS NORMAL; rbc morphology (normal/abnorm) ABNORMAL (NORMAL)
[2017-09-28 10:05] LABS: tear drop cell (dacryocyte) 1+
[2017-09-28 13:20] LABS: ALBUMIN 3.5 g/dL (3.4-5.0); ALKALINE PHOSPHATASE 84 U/L (46-116); ALT/SGPT 47 U/L (16-63); AST/SGOT 16 U/L (15-37); BILIRUBIN TOTAL 0.73 mg/dL (0.20-1.00); CALCIUM 8.4 mg/dL (8.5-10.1); CARBON DIOXIDE 21.6 mmol/L (21-32); CHLORIDE SERUM 102 mmol/L (98-107); GFR1 > 60 mL/min; GLUCOSE SERUM 248 mg/dL (74-106); SODIUM SERUM 136 mmol/L (136-145); TOTAL PROTEIN, SERUM 6.9 g/dL (6.4-8.2)
[2017-09-28 15:22] LABS: PLATELET COUNT 148 x10^3mcL (130-400)
[2017-09-28 15:49] LABS: RED CELL DISTRIBUTION WIDTH 24.1 % (11.5-14.5)
[2017-09-28 16:53] LABS: BAND NEUTROPHIL 0 % (0-10); BASOPHIL 0 % (0-2); MONOCYTE 18 % (0-7); SEGMENTED NEUTROPHILS 31 % (37-75)
[2017-09-28 16:54] LABS: rbc morphology (normal/abnorm) ABNORMAL (NORMAL)
[2017-09-28 16:55] LABS: tear drop cell (dacryocyte) 1+
[2017-09-28 16:56] LABS: PLATELET MORPHOLOGY PLATELETS NORMAL
[2017-09-28 22:30] LABS: PLATELET COUNT 147 x10^3mcL (130-400)
[2017-09-28 22:36] LABS: RED CELL DISTRIBUTION WIDTH 22.6 % (11.5-14.5)
[2017-09-28 22:55] LABS: BAND NEUTROPHIL 2 % (0-10); METAMYELOCTE 2 % (0-2); MONOCYTE 20 % (0-7); SEGMENTED NEUTROPHILS 27 % (37-75)
[2017-09-28 23:06] LABS: rbc morphology (normal/abnorm) ABNORMAL (NORMAL)
[2017-09-28 23:07] LABS: tear drop cell (dacryocyte) 1+
[2017-09-29 05:07] VITALS: BP 124/71
[2017-09-29 06:29] LABS: PLATELET COUNT 137 x10^3mcL (130-400)
[2017-09-29 06:47] LABS: RED CELL DISTRIBUTION WIDTH 22.7 % (11.5-14.5)
[2017-09-29 06:48] LABS: CALCIUM 8.2 mg/dL (8.5-10.1); CARBON DIOXIDE 24.1 mmol/L (21-32); CHLORIDE SERUM 103 mmol/L (98-107); CREATININE SERUM 0.9 mg/dL (0.7-1.3); GFR1 > 60 mL/min; GLUCOSE SERUM 223 mg/dL (74-106); MAGNESIUM 1.7 mg/dL (1.8-2.4); PHOSPHOROUS 4.5 mg/dL (2.5-4.9); POTASSIUM SERUM 3.8 mmol/L (3.5-5.1); SODIUM SERUM 138 mmol/L (136-145)
[2017-09-29 07:21] LABS: BAND NEUTROPHIL 0 % (0-10); BASOPHIL 0 % (0-2); METAMYELOCTE 2 % (0-2); MONOCYTE 18 % (0-7); SEGMENTED NEUTROPHILS 31 % (37-75)
[2017-09-29 07:23] LABS: rbc morphology (normal/abnorm) ABNORMAL (NORMAL); tear drop cell (dacryocyte) 1+
[2017-09-29 08:33] VITALS: BP 120/77
[2017-09-29] MEDS ORDERED: LIPI10 PO (11:39)
[2017-09-29] MEDS ORDERED: ZIT250 PO (11:39)
[2017-09-29] MEDS ORDERED: APAP/HYDROCODON1 T13 PO (11:39)
[2017-09-29 12:36] VITALS: BP 120/77
[2017-09-29 13:05] VITALS: BP 121/82
== END 2017-09-29 15:30 | disposition home or self-care (01) | DRG 808 ==
LOC: ED 01:28 → DU 07:21
PROVIDERS: Emergency Medicine; Family Medicine
PROC: 30233N1 Transfusion of Nonautologous Red Blood Cells into Peripheral Vein, Percutaneous Approach (ICD-10-PCS; principal; 2017-09-28)
DX: D61.810 Antineoplastic chemotherapy induced pancytopenia (principal); J18.9 Pneumonia, unspecified organism; C95.90 Leukemia, unspecified not having achieved remission; D59.9 Acquired hemolytic anemia, unspecified; I10 Essential (primary) hypertension; F32.9 Major depressive disorder, single episode, unspecified; E78.5 Hyperlipidemia, unspecified; E11.65 Type 2 diabetes mellitus with hyperglycemia; Z85.028 Personal history of other malignant neoplasm of stomach
CPT/HCPCS: 36600; 82962; 83880; 84439; 87804; G0480; J0696; J1885; J2270; J2405; J2543; J3475; J7030; J7050; J7620; P9016; Q0092; Q0163; Q9967

== ENCOUNTER 2019-02-03 15:12 | Inpatient (IN) | payer OTHER ==
[~2019-02-03] VITALS: Ht 165.1 cm; Wt 70.9 kg
[~2019-02-03 15:12] MED LIST changes: +APAP/HYDROCODON1 T13 PO; +LIPI10 PO; +ZIT250 PO
[2019-02-03 15:34] VITALS: Ht 165.1 cm; Wt 70.9 kg
--- NOTE | 2019-02-03 16:41 | NUR ---
PT SITTING UP IN BED, AAOX4 WITH C/O 10/10 PAIN TO LOWER BACK X 2 WEEKS. PT DENIES ANY TRAUMA AT THIS TIME, STATES HE WAS TREATED AT [facility] 6 MONTHS AGO FOR SAME SYMPTOM. PT ALSO WITH C/O DRY COUGH X 6 MONTHS AND WAS DX WITH PE 6 MONTHS AGO. PT ALSO WITH C/O GENERALIZED WEAKNESS WITH SOB X 2 WEEKS WITH NAUSEA DUE TO CHEMO TREATMENTS FOR LEUKEMIA. PT STATES HE WAS CALLED BY HIS CLINIC TODAY AND TOLD TO COME TO THE HOSPITAL DUE TO RBC'S BEING LOW.
--- NOTE | 2019-02-03 17:23 | NUR ---
PT SITTING UP IN BED, NOTED TO HAVE OCCASIONAL DRY COUGH. PT PLACED ON MONITOR.
--- NOTE | 2019-02-03 18:20 | NUR ---
PT RESTING IN BED WITH LAB AND WATERFRONT DIRECTOR AT BEDSIDE.
[2019-02-03 18:43] LABS: CALCIUM 8.4 mg/dL (8.5-10.1); CARBON DIOXIDE 27.8 mmol/L (21-32); CHLORIDE SERUM 105 mmol/L (98-107); CREATININE SERUM 0.8 mg/dL (0.7-1.3); GFR1 > 60 mL/min; GLUCOSE SERUM 170 mg/dL (74-106); POTASSIUM SERUM 4.1 mmol/L (3.5-5.1); SODIUM SERUM 141 mmol/L (136-145)
[2019-02-03 18:52] LABS: ALKALINE PHOSPHATASE 139 U/L (46-116); ALT/SGPT 27 U/L (16-63); AST/SGOT 14 U/L (15-37); BILIRUBIN TOTAL 0.7 mg/dL (0.20-1.00); C REACTIVE PROTEIN 8.7 mg/dL (<=0.9); TOTAL PROTEIN, SERUM 6.3 g/dL (6.4-8.2)
[2019-02-03 18:53] LABS: ALBUMIN 3.1 g/dL (3.4-5.0)
[2019-02-03 18:54] LABS: RED CELL DISTRIBUTION WIDTH 19.2 % (11.5-14.5)
[2019-02-03 18:55] LABS: PLATELET COUNT 53 x10^3mcL (130-400)
[2019-02-03 18:56] LABS: FREE T4 1.1 ng/dL (0.76-1.46); FREE THYROXINE INDEX 2.7 ug/dL (1.4-4.5); T4(THYROXINE) 8.3 ug/dL (4.7-13.3)
[2019-02-03 18:57] LABS: CK-MB 0.5 ng/mL (0-3.6)
[2019-02-03 19:03] LABS: BAND NEUTROPHIL 2 % (0-10); BASOPHIL 0 % (0-2); MONOCYTE 14 % (0-7); SEGMENTED NEUTROPHILS 64 % (37-75); rbc morphology (normal/abnorm) ABNORMAL (NORMAL)
[2019-02-03 19:10] LABS: T3 TOTAL 0.74 ng/mL
--- NOTE | 2019-02-03 19:12 | NUR ---
PT RESTING IN BED WITH NO SIGNS OF DISTRESS AT THIS TIME.
[2019-02-03 19:38] LABS: UA SPECIFIC GRAVITY 1.025 (1.005-1.035); microscopic required? YES; urine erythrocyte NEGATIVE (NEGATIVE)
[2019-02-03 19:51] LABS: ERYTHROCYTE SED RATE 92 mm/hr (0-15)
--- NOTE | 2019-02-03 20:12 | NUR ---
PT RESTING IN BED WITH NO SIGNS OF DISTRESS AT THIS TIME.
[2019-02-03] MEDS ORDERED: XARELTO15 M1 PO (20:51)
--- NOTE | 2019-02-03 21:16 | NUR ---
PT RESTING IN BED WATCHING TV WITH NO SIGNS OF DISTRESS AT THIS TIME.
[2019-02-03 21:30] LABS: CHOLESTEROL/HDL RATIO 4.7
[2019-02-03] MEDS ORDERED: XARELTO20 M1 PO (21:57)
--- NOTE | 2019-02-03 22:47 | NUR ---
PT RESTING IN BED WHILE TALKING ON PHONE. NO SIGNS OF DISTRESS AT THIS TIME.
--- NOTE | 2019-02-03 23:14 | NUR ---
REPORT GIVEN TO TERRELL CABRERA.
[2019-02-03 23:41] VITALS: BP 127/74
--- NOTE | 2019-02-03 23:45 | NUR ---
RECEIVED PT FROM ED VIA [facility]. ORIENTD PT TO ROOM AND SURROUNDINGS. RIGHT SIDE MILLIE CATH NOTED. INSTRUCTED PT ON THE USE OF CALL LIGHT FOR ASSISTANCE. ENDORSD PT TO PRIMARY NURSE TERRELL
--- NOTE | 2019-02-03 23:50 | NUR ---
REC'D PT FROM ER VIA [facility]. PT ABLE TO AMBULATE TO [facility] WITHOUT ANY DIFFICULTY. PT IS A/O X4, SPEECH CLEAR AND APPRORPIATE. PT WITH C/O 9/10 BACK PAIN, WILL MEDICATE PER MD ORDER. DENIES ANY N/V AT THIS TIME. PT WITH ONGOING CHEMOTHERAPY, PT CHANGED TO PRIVATE ROOM, NEUTROPENIC PRECAUTIONS APPLIED AND MAINTAINED. DENIES ANY CP, SYNCOPE, OR DIZZINESS. ABD DISTENDED AND SOFT, PTS STS HAVING HX OF HERNIA. PT VOIDS FREELY WITH BRP. PT AMBULATORY WITH STEADY GAIT. PT WITH R UPPER CHEST MILLIE IN PLACE WITH DONG NEEDLE IN PLACE. PT STS HE WANTS HIS IV ACCESS ONLY TO BE USED THROUGH MILLIE CATH D/T BEING HARDSTICK. PT REFUSED PERIPHERAL IV INSERTION. IVF NS INFUSING @ 110ML/HR. PT PROVIDED SANDWICH, PUDDING, AND JELLO AT THIS TIME. PT TEACHING PROVIDED TO USE CALL LIGHT FOR ANY ASSISTANCE, VERBALIZED UNDERSTANDING. CALL LIGHT WITHIN REACH. WILL CONTINUE TO MONITOR.
--- NOTE | 2019-02-04 00:06 | NUR ---
LAB AT BEDSIDE FOR TYPE AND SCREEN.
--- NOTE | 2019-02-04 03:22 | NUR ---
1 UNIT PRBC INITIATED AT THIS TIME.
--- NOTE | 2019-02-04 05:25 | NUR ---
1 UNIT PRBC COMPLETE. VITAL SIGSN 98.8, 108, 116/82, 16, 97%. NO A/R NOTED.
--- NOTE | 2019-02-04 06:38 | NUR ---
PT STS FEELING SORE THROAT, PAGED DR EDUARDO AT THIS TIME, AWAITING CALL BACK.
[2019-02-04 07:05] LABS: CARBON DIOXIDE 24.1 mmol/L (21-32); CHLORIDE SERUM 109 mmol/L (98-107); CREATININE SERUM 0.8 mg/dL (0.7-1.3); GFR1 > 60 mL/min; GLUCOSE SERUM 137 mg/dL (74-106); MAGNESIUM 1.9 mg/dL (1.8-2.4); PHOSPHOROUS 4.3 mg/dL (2.5-4.9); SODIUM SERUM 142 mmol/L (136-145)
--- NOTE | 2019-02-04 07:20 | NUR ---
RECEIVED BEDSIDE REPORT FROM FREIGHT HANDLER NURSE AT THIS TIME. PATIENT RESTING COMFORTABLY IN BED. NO APPARENT DISTRESS OR DISCOMFORT NOTED. BREATHING EEN AND UNLABORED. NO RESPIRATORY DISTRESS NOTED. PATIENT DENIES CHEST PAIN/PRESSURE AT THIS TIME. PATIENT REFUSING IV ACCESS AT THIS TIME. PATIENT HAS PERMA CATH ACCESS AND IS ALLOWING US TO USE. DR RYDER MADE AWARE. ALL QUESTIONS AND CONCERNS ADDRESSED. ALL NEEDS ATTENDED TO. NEUTRAPENIC PRECAUTION IN PLACE. WILL CONTINUE TO MONITOR
[2019-02-04 07:40] LABS: PLATELET COUNT 58 x10^3mcL (130-400); RED CELL DISTRIBUTION WIDTH 22.4 % (11.5-14.5)
[2019-02-04 09:07] VITALS: BP 126/81
[2019-02-04 10:17] LABS: BAND NEUTROPHIL 3 % (0-10); BASOPHIL 0 % (0-2); MONOCYTE 20 % (0-7); SEGMENTED NEUTROPHILS 62 % (37-75)
[2019-02-04 10:19] LABS: PLATELET MORPHOLOGY PLATELETS DECREASED; rbc morphology (normal/abnorm) ABNORMAL (NORMAL)
[2019-02-04 10:20] LABS: tear drop cell (dacryocyte) 1+
--- NOTE | 2019-02-04 10:26 | NUR ---
ALL MORNING MEDICATION ADMINISTERED AT THIS TIME. PATIENT TOLERATED WELL. NO ADVERSE EFFECTS NOTED. ALL NEEDS ATTENDED TO. WILL CONTINUE TO MONITOR.
--- NOTE | 2019-02-04 12:45 | NUR ---
ATTEMPTED PERIPHERAL IV ACCESS FOR CT ANGIO AT THIS TIME. PATIENT STATES HE IS A HARD STICK AND HE IS ON CHEMOTHERAPY. ATTEMPTED X1 AND UNSUCCESSFUL. WILL NOTIFY DR RYDER.
--- NOTE | 2019-02-04 13:12 | NUR ---
PATIENT SITTING UP IN BED EATING LUNCH AT THIS TIME. PATIENT TOLERATING DIET WELL. NO APPARENT DISTRESS OR DISCOMFORT NOTED. ALL NEEDS ATTENDED TO. WILL CONTINUE TO MONITOR
--- NOTE | 2019-02-04 14:50 | NUR ---
ATTEMPTED ANOTHER IV ACCESS AT THIS TIME, UNSUCCESSFUL. DR RYDER MADE AWARE. WILL PROCEED ORDERED. ALL NEEDS ATTENDED TO. WILL CONTINUE TO MONITOR
--- NOTE | 2019-02-04 16:41 | NUR ---
ATTEMPTED IV ACCESS FOR VQ SCAN AT THIS TIME, UNSUCCESSFUL. PATIENT REQUESTING TO DELAY IV INSERTION UNTIL PATIENT IS PERSONALLY READY. WILL PROCEED ORDERED
--- NOTE | 2019-02-04 16:56 | NUR ---
PATIENT BLOOD SUGAR 147 AT THIS TIME. NO INSULIN COVERAGE REQUIRED. ALL NEEDS ATTENDED TO. WILL CONTINUE TO MONITOR
--- NOTE | 2019-02-04 17:50 | NUR ---
PATIENT SITTING UP IN BED EATING DINNER AT THIS TIME. PATIENT TOLERATING DIET WELL. NO APPARENT DISTRESS OR DISCOMFORT NOTED. ALL NEEDS ATTENDED TO. WILL CONTINUE TO MONITOR
[2019-02-04 17:54] VITALS: BP 118/78
--- NOTE | 2019-02-04 18:37 | NUR ---
PATIENT RESTING COMFORTABLY IN BED AT THIS TIME. NO APPARENT DISTRESS OR DISCOMFORT NOTED. IV PATENT AND INTACT. ALL QUESTIONS AND CONCERNS ADDRESSED. SAFETY PRECAUTIONS MAINTAINED. ALL NEEDS ATTENDED TO. WILL ENDORSE ALL CARE TO NUMERICAL CONTROL DRILL PRESS OPERATOR NURSE
--- NOTE | 2019-02-04 19:00 | NUR ---
RECEIVED PT FROM DAY SHIFT RN. PT IS RESTING IN BED ALERT AND ORIENTED TO PERSON PLACE AND TIME. NEUTROPENIC PRECAUTIONS ARE IN PLACE. PT DENIES SHORTNESS OF BREATH AT THIS TIME ON ROOM. BREATHING IS EVEN AND UNLABORED. PT DENIES CHEST PAIN. PT STATED BACK PAIN IS TOLERABLE AT THIS TIME AFTER RECEIVING MORPHINE AT 1830. INSTRUCTED PT TO CALL IF BACK PAIN BECOMES WORSE AND IF HE NEEDS ASSISTANCE USING THE RESTROOM. NS IS RUNNING THROUGH A RIGHT CHEST PORTACATH. DRESSING CDI AT THIS TIME. SAFETY MEASURES ARE IN PLACE. BED IN THE LOWEST POSITION. WILL CONTIUE TO MONITOR.
[2019-02-04 20:54] VITALS: BP 137/87
--- NOTE | 2019-02-04 21:05 | NUR ---
2 X IV START ATTEMPT UNSUCCESSFUL.
--- NOTE | 2019-02-04 23:21 | NUR ---
22G IV INSTERTED INTO THE RIGHT UPPER ARM. PT TOLERATED PROCEDURE WELL. CALLED CT TO INFORM ABOUT IV PLACEMENT. SPOKE WITH STATION TENDER. STATION TENDER TO RELAY MESSAGE TO
[2019-02-05 05:19] VITALS: BP 109/76
[2019-02-05 06:42] LABS: CALCIUM 8.5 mg/dL (8.5-10.1); CARBON DIOXIDE 22.9 mmol/L (21-32); CHLORIDE SERUM 107 mmol/L (98-107); CREATININE SERUM 0.7 mg/dL (0.7-1.3); GFR1 > 60 mL/min; GLUCOSE SERUM 115 mg/dL (74-106); MAGNESIUM 2.1 mg/dL (1.8-2.4); POTASSIUM SERUM 3.8 mmol/L (3.5-5.1); SODIUM SERUM 140 mmol/L (136-145)
--- NOTE | 2019-02-05 07:00 | NUR ---
RECEIVED BEDSIDE REPORT FROM DISPENSING LEAD NURSE AT THIS TIME. PATIENT RESTING COMFORTABLY IN BED. NO APPARENT DISTRESS OR DISCOMFORT NOTED. BREATHING EVEN AND UNLABORED. NO RESPIRATORY DISTRESS OR DISCOMFORT NOTED. PATIENT DENIES CHEST PAIN/PRESSURE AT THIS TIME. IV ACCESS OBTAINED TO RIGHT UPPER ARM 22G WILL CALL FOR VQ SCAN @0800. ALL QUESTIONS AND CONCERNS ADDRESSED. ALL NEEDS ATTENDED TO. WILL CONTINUE TO MONITOR. NEUTRAPENIC PRECAUTION IN PLACE
[2019-02-05 07:52] LABS: PLATELET COUNT 68 x10^3mcL (130-400); RED CELL DISTRIBUTION WIDTH 22.8 % (11.5-14.5)
[2019-02-05 09:17] VITALS: BP 118/81
--- NOTE | 2019-02-05 10:00 | NUR ---
ALL MORNING MEDICATION ADMINISTERED. PATIENT TOLERATED WELL. NO ADVERSE EFFECTS. ALL NEEDS ATTENDED TO. WILL CONTINUE TO MONITOR
--- NOTE | 2019-02-05 11:14 | NUR ---
PATIENT DOWNSTAIRS FOR VQ SCAN AT THIS TIME.
[2019-02-05 12:32] LABS: BAND NEUTROPHIL 4 % (0-10); BASOPHIL 0 % (0-2); METAMYELOCTE 1 % (0-2); MONOCYTE 22 % (0-7); MYELOCYTE 1 % (0-2); SEGMENTED NEUTROPHILS 55 % (37-75)
[2019-02-05 12:33] LABS: PLATELET MORPHOLOGY LARGE PLATELET SEEN; rbc morphology (normal/abnorm) ABNORMAL (NORMAL); tear drop cell (dacryocyte) 1+
[2019-02-05] MEDS ORDERED: TOR10 PO (14:06)
[2019-02-05] MEDS ORDERED: CYCLOBENZAPRINE10 MG PO (14:08)
[2019-02-05 16:26] VITALS: BP 118/81
--- NOTE | 2019-02-05 17:11 | NUR ---
PATIENT STABLE TO BE DISCHARGE TO HOME. DISCHARGE INSTRUCTIONS GIVEN WELL EDUCATION. INSTRUCTED PATIENT ABOUT FOLLOW UP APPOINTMENT. PATIENT VERBALIZES UNDERSTANDING. DONG NEEDLE REMOVED FROM MILLIE CATH ACCESS AND PRESSURE APPLIED. IV ACCESS REMOVED WITH CATH INTACT. ID BANDS REMOVED. ALL BELONGINGS WITH PATIENT. ALL QUESTIONS AND CONCERNS ADDRESSED. ALL NEEDS ATTENDED TO. PATIENT ESCORTED DOWN TO THE LOBBY BY RADHA AT THIS TIME.
== END 2019-02-05 17:25 | disposition home or self-care (01) | DRG 840 ==
LOC: ED 15:12 → MU 20:46
PROVIDERS: Specialist; ADMIT Internal Medicine
PROC: 30233N1 Transfusion of Nonautologous Red Blood Cells into Peripheral Vein, Percutaneous Approach (ICD-10-PCS; principal; 2019-02-04)
DX: C95.90 Leukemia, unspecified not having achieved remission (principal); J96.01 Acute respiratory failure with hypoxia; N17.0 Acute kidney failure with tubular necrosis; D61.818 Other pancytopenia; M51.26 Other intervertebral disc displacement, lumbar region; D63.0 Anemia in neoplastic disease; D69.59 Other secondary thrombocytopenia; E83.51 Hypocalcemia; E11.9 Type 2 diabetes mellitus without complications; F32.9 Major depressive disorder, single episode, unspecified; Z68.25 Body mass index [BMI] 25.0-25.9, adult; Z80.0 Family history of malignant neoplasm of digestive organs; Z86.711 Personal history of pulmonary embolism; Z79.01 Long term (current) use of anticoagulants; Z79.84 Long term (current) use of oral hypoglycemic drugs; Z79.899 Other long term (current) drug therapy
CPT/HCPCS: 36600; 82962; 83880; 84439; 97116-GP; A9540; G0378; J1885; J2270; J2405; J3010; J7030; J7050; P9016; Q0092; Q0163

== ENCOUNTER 2019-03-16 20:02 | Emergency (ER) | payer OTHER ==
[~2019-03-16] VITALS: Ht 160 cm; Wt 68.0 kg
[~2019-03-16 20:02] MED LIST changes: +CYCLOBENZAPRINE10 MG PO; +TOR10 PO; +XARELTO15 M1 PO; +XARELTO20 M1 PO
[2019-03-16 20:21] VITALS: Ht 160 cm; Wt 68.0 kg
[2019-03-17 01:27] LABS: CALCIUM 7.8 mg/dL (8.5-10.1); CARBON DIOXIDE 23.1 mmol/L (21-32); CHLORIDE SERUM 111 mmol/L (98-107); CREATININE SERUM 1.2 mg/dL (0.7-1.3); GFR1 > 60 mL/min; GLUCOSE SERUM 105 mg/dL (74-106); POTASSIUM SERUM 4.4 mmol/L (3.5-5.1); SODIUM SERUM 137 mmol/L (136-145)
[2019-03-17 01:34] LABS: ALKALINE PHOSPHATASE 408 U/L (46-116); ALT/SGPT 47 U/L (16-63); AMYLASE 42 U/L (25-115); AST/SGOT 23 U/L (15-37); BILIRUBIN TOTAL 0.81 mg/dL (0.20-1.00); LIPASE 169 IU/L (73-393); TOTAL PROTEIN, SERUM 6.3 g/dL (6.4-8.2)
[2019-03-17 01:35] LABS: ALBUMIN 2.8 g/dL (3.4-5.0)
[2019-03-17 01:38] LABS: RED CELL DISTRIBUTION WIDTH 22.8 % (11.5-14.5)
[2019-03-17 02:08] LABS: BAND NEUTROPHIL 20 % (0-10); MONOCYTE 10 % (0-7); SEGMENTED NEUTROPHILS 50 % (37-75)
[2019-03-17 02:09] LABS: rbc morphology (normal/abnorm) ABNORMAL (NORMAL)
[2019-03-17 02:10] LABS: PLATELET MORPHOLOGY PLATELETS DECREASED
[2019-03-17 02:38] LABS: UA SPECIFIC GRAVITY 1.025 (1.005-1.035); microscopic required? YES; urine erythrocyte NEGATIVE (NEGATIVE)
[2019-03-17 03:02] LABS: PLATELET COUNT 41 x10^3mcL (130-400)
[2019-03-17 05:02] VITALS: BP 130/73
== END 2019-03-17 05:02 | disposition home or self-care (01) ==
LOC: ED 20:02
PROVIDERS: Emergency Medicine
DX: R10.33 Periumbilical pain (principal); R11.2 Nausea with vomiting, unspecified
CPT/HCPCS: J1642; J2270; J2765; J3010; J7030